=== PATIENT | male | born 1960 | race Caucasian/White ===

== ENCOUNTER 2024-08-11 09:52 | Outpatient (CLI) | payer BC, SELFPAY | END 2024-08-11 09:53 | disposition home or self-care (01) | LOC: WOUND 09:53 | PROVIDERS: PCP Internal Medicine; Visit Provider Nurse Practitioner Family | DX: T81.31XA Disruption of external operation (surgical) wound, not elsewhere classified, initial encounter (principal); L89.154 Pressure ulcer of sacral region, stage 4; G35 Multiple sclerosis | CPT/HCPCS: 11042; 97597; 97605; G0463 ==

== ENCOUNTER 2024-08-17 10:42 | Outpatient (CLI) | payer BC, SELFPAY | END 2024-08-17 10:43 | disposition home or self-care (01) | LOC: WOUND 10:42 | PROVIDERS: PCP Internal Medicine; Visit Provider Nurse Practitioner Family | DX: L89.154 Pressure ulcer of sacral region, stage 4 (principal); T81.31XA Disruption of external operation (surgical) wound, not elsewhere classified, initial encounter; G35 Multiple sclerosis | CPT/HCPCS: 11043; 97597; 97605 ==

== ENCOUNTER 2024-08-24 10:49 | Outpatient (CLI) | payer BC, SELFPAY | END 2024-08-24 10:50 | disposition home or self-care (01) | LOC: WOUND 10:49 | PROVIDERS: PCP Internal Medicine; Visit Provider Nurse Practitioner Family | DX: L89.154 Pressure ulcer of sacral region, stage 4 (principal); T81.31XA Disruption of external operation (surgical) wound, not elsewhere classified, initial encounter; G35 Multiple sclerosis | CPT/HCPCS: 11042; 97597; 97605 ==

== ENCOUNTER 2024-08-31 10:46 | Outpatient (CLI) | payer BC, SELFPAY | END 2024-08-31 10:47 | disposition home or self-care (01) | LOC: WOUND 10:46 | PROVIDERS: PCP Internal Medicine; Visit Provider Nurse Practitioner Family | DX: L89.154 Pressure ulcer of sacral region, stage 4 (principal); G35 Multiple sclerosis | CPT/HCPCS: 11042 ==

== ENCOUNTER 2024-09-07 10:43 | Outpatient (CLI) | payer BC, SELFPAY | END 2024-09-07 10:44 | disposition home or self-care (01) | PROVIDERS: PCP Internal Medicine; Visit Provider Nurse Practitioner Family | DX: L89.154 Pressure ulcer of sacral region, stage 4 (principal); T81.31XA Disruption of external operation (surgical) wound, not elsewhere classified, initial encounter; G35 Multiple sclerosis | CPT/HCPCS: 11042; 97605 ==

== ENCOUNTER 2024-09-14 10:42 | Outpatient (CLI) | payer BC, SELFPAY | END 2024-09-14 10:43 | disposition home or self-care (01) | LOC: WOUND 10:42 | PROVIDERS: PCP Internal Medicine; Visit Provider Nurse Practitioner Family | DX: L89.154 Pressure ulcer of sacral region, stage 4 (principal); T81.31XA Disruption of external operation (surgical) wound, not elsewhere classified, initial encounter; G35 Multiple sclerosis | CPT/HCPCS: 11042; 97605 ==

== ENCOUNTER 2024-09-21 10:49 | Outpatient (CLI) | payer BC, SELFPAY | END 2024-09-21 10:50 | disposition home or self-care (01) | LOC: WOUND 10:49 | PROVIDERS: PCP Internal Medicine; Visit Provider Nurse Practitioner Family | DX: L89.154 Pressure ulcer of sacral region, stage 4 (principal); G35 Multiple sclerosis | CPT/HCPCS: 11042; 97605 ==

== ENCOUNTER 2024-09-28 10:45 | Outpatient (CLI) | payer BC, SELFPAY | END 2024-09-28 10:46 | disposition home or self-care (01) | LOC: WOUND 10:45 | PROVIDERS: PCP Internal Medicine; Visit Provider Nurse Practitioner Family | DX: L89.154 Pressure ulcer of sacral region, stage 4 (principal); G35 Multiple sclerosis | CPT/HCPCS: 11042; 97605 ==

== ENCOUNTER 2024-10-05 10:47 | Outpatient (CLI) | payer BC, SELFPAY | END 2024-10-05 10:48 | disposition home or self-care (01) | LOC: WOUND 10:47 | PROVIDERS: PCP Internal Medicine; Visit Provider Nurse Practitioner Family | DX: L89.154 Pressure ulcer of sacral region, stage 4 (principal); G35 Multiple sclerosis | CPT/HCPCS: 15271; Q4151 ==

== ENCOUNTER 2024-10-12 10:37 | Outpatient (CLI) | payer BC, SELFPAY | END 2024-10-12 10:38 | disposition home or self-care (01) | LOC: WOUND 10:37 | PROVIDERS: PCP Internal Medicine; Visit Provider Family Medicine | DX: L89.154 Pressure ulcer of sacral region, stage 4 (principal); G35 Multiple sclerosis | CPT/HCPCS: 11042; 97605 ==

== ENCOUNTER 2024-10-19 10:46 | Outpatient (CLI) | payer BC, SELFPAY | END 2024-10-19 10:47 | disposition home or self-care (01) | LOC: WOUND 10:46 | PROVIDERS: PCP Internal Medicine; Visit Provider Physician Assistant | DX: L89.154 Pressure ulcer of sacral region, stage 4 (principal); G35 Multiple sclerosis | CPT/HCPCS: 15271; 15275; 97605; Q4151 ==

== ENCOUNTER 2024-10-26 10:53 | Outpatient (CLI) | payer BC, SELFPAY | END 2024-10-26 10:54 | disposition home or self-care (01) | LOC: WOUND 10:53 | PROVIDERS: PCP Internal Medicine; Visit Provider Nurse Practitioner Family | DX: L89.154 Pressure ulcer of sacral region, stage 4 (principal); G35 Multiple sclerosis | CPT/HCPCS: 11042; 97605 ==

== ENCOUNTER 2024-11-02 10:39 | Outpatient (CLI) | payer BC, SELFPAY | END 2024-11-02 10:40 | disposition home or self-care (01) | LOC: WOUND 10:39 | PROVIDERS: PCP Internal Medicine; Visit Provider Nurse Practitioner Family | DX: L89.154 Pressure ulcer of sacral region, stage 4 (principal); G35 Multiple sclerosis | CPT/HCPCS: 15271; 97605; Q4151 ==

== ENCOUNTER 2024-11-09 10:48 | Outpatient (CLI) | payer BC, SELFPAY | END 2024-11-09 10:49 | disposition home or self-care (01) | LOC: WOUND 10:48 | PROVIDERS: PCP Internal Medicine; Visit Provider Nurse Practitioner Family | DX: L89.154 Pressure ulcer of sacral region, stage 4 (principal); G35 Multiple sclerosis | CPT/HCPCS: 11042; 97605 ==

== ENCOUNTER 2024-11-16 10:41 | Outpatient (CLI) | payer BC, SELFPAY | END 2024-11-16 10:42 | disposition home or self-care (01) | LOC: WOUND 10:41 | PROVIDERS: PCP Internal Medicine; Visit Provider Nurse Practitioner Family | DX: L89.154 Pressure ulcer of sacral region, stage 4 (principal); G35 Multiple sclerosis | CPT/HCPCS: 11042; 97605 ==

== ENCOUNTER 2024-11-23 10:39 | Outpatient (CLI) | payer BC, SELFPAY | END 2024-11-23 10:40 | disposition home or self-care (01) | LOC: WOUND 10:39 | PROVIDERS: PCP Internal Medicine; Visit Provider Nurse Practitioner Family | DX: L89.154 Pressure ulcer of sacral region, stage 4 (principal); G35 Multiple sclerosis | CPT/HCPCS: 11042 ==

== ENCOUNTER 2024-11-30 10:47 | Outpatient (CLI) | payer BC, SELFPAY | END 2024-11-30 10:48 | disposition home or self-care (01) | LOC: WOUND 10:47 | PROVIDERS: PCP Internal Medicine; Visit Provider Nurse Practitioner Family | DX: L89.154 Pressure ulcer of sacral region, stage 4 (principal); G35 Multiple sclerosis | CPT/HCPCS: 11042 ==

== ENCOUNTER 2024-12-07 10:38 | Outpatient (CLI) | payer BC, SELFPAY | END 2024-12-07 10:39 | disposition home or self-care (01) | LOC: WOUND 10:38 | PROVIDERS: PCP Internal Medicine; Visit Provider Nurse Practitioner Family | DX: L89.154 Pressure ulcer of sacral region, stage 4 (principal); G35 Multiple sclerosis | CPT/HCPCS: 11042 ==

== ENCOUNTER 2024-12-14 10:54 | Outpatient (CLI) | payer MEDICAID, SELFPAY | END 2024-12-14 10:55 | disposition home or self-care (01) | PROVIDERS: PCP Internal Medicine; Visit Provider Nurse Practitioner Family | DX: L89.154 Pressure ulcer of sacral region, stage 4 (principal); G35 Multiple sclerosis | CPT/HCPCS: 11042 ==

== ENCOUNTER 2024-12-21 10:30 | Outpatient (CLI) | payer BC, SELFPAY ==
--- NOTE | 2024-12-21 11:30 | CRLHL7_ITS ---
For Patients: As a result of the Cures Act, medical imaging exams and procedure reports are released immediately into your electronic medical record. You may view this report before your referring provider. If you have questions, please contact your health care provider. Indication: STAGE 4 PRESSURE ULCER. ASSESS FOR OSTEOMYELITIS Technique: AP pelvis Comparison: None Findings: Joint space narrowing and spurring at the right hip with subchondral degenerative cystic change and loss of the joint space. No periostitis or cortical destruction. No fracture. Vascular calcifications. No soft tissue gas. Impression: No evidence of osteomyelitis. Dictated by Elliot Malcolm MD @ 12/21/2024 12:25:58 PM (Electronically Signed)
== END 2024-12-21 10:31 | disposition home or self-care (01) ==
PROVIDERS: PCP Internal Medicine; Visit Provider Nurse Practitioner Family
DX: L89.154 Pressure ulcer of sacral region, stage 4 (principal); G35 Multiple sclerosis
CPT/HCPCS: 11042; 72170

== ENCOUNTER 2024-12-28 10:50 | Outpatient (CLI) | payer BC, SELFPAY | END 2024-12-28 10:51 | disposition home or self-care (01) | LOC: WOUND 10:50 | PROVIDERS: PCP Internal Medicine; Visit Provider Nurse Practitioner Family | DX: L89.154 Pressure ulcer of sacral region, stage 4 (principal); G35 Multiple sclerosis | CPT/HCPCS: 11042 ==

== ENCOUNTER 2025-01-04 10:48 | Outpatient (CLI) | payer BC, SELFPAY | END 2025-01-04 10:49 | disposition home or self-care (01) | LOC: WOUND 10:48 | PROVIDERS: PCP Internal Medicine; Visit Provider Nurse Practitioner Family | DX: L89.154 Pressure ulcer of sacral region, stage 4 (principal); G35 Multiple sclerosis | CPT/HCPCS: 11042 ==

== ENCOUNTER 2025-01-11 10:48 | Outpatient (CLI) | payer BC, SELFPAY | END 2025-01-11 10:49 | disposition home or self-care (01) | LOC: WOUND 10:48 | PROVIDERS: PCP Internal Medicine; Visit Provider Nurse Practitioner Family | DX: L89.154 Pressure ulcer of sacral region, stage 4 (principal); G35 Multiple sclerosis | CPT/HCPCS: 11042 ==

== ENCOUNTER 2025-01-18 10:35 | Outpatient (CLI) | payer BC, SELFPAY | END 2025-01-18 10:36 | disposition home or self-care (01) | LOC: WOUND 10:36 | PROVIDERS: PCP Internal Medicine; Visit Provider Nurse Practitioner Family | DX: L89.154 Pressure ulcer of sacral region, stage 4 (principal); G35.D Multiple sclerosis, unspecified | CPT/HCPCS: 11042 ==

== ENCOUNTER 2025-01-25 10:40 | Outpatient (CLI) | payer BC, SELFPAY | END 2025-01-25 10:41 | disposition home or self-care (01) | LOC: WOUND 10:40 | PROVIDERS: PCP Internal Medicine; Visit Provider Nurse Practitioner Family | DX: L89.154 Pressure ulcer of sacral region, stage 4 (principal); G35.D Multiple sclerosis, unspecified | CPT/HCPCS: 11042 ==

== ENCOUNTER 2025-02-01 10:56 | Outpatient (CLI) | payer BC, SELFPAY | END 2025-02-01 10:57 | disposition home or self-care (01) | LOC: WOUND 10:56 | PROVIDERS: PCP Internal Medicine; Visit Provider Nurse Practitioner Family | DX: L89.154 Pressure ulcer of sacral region, stage 4 (principal); G35.D Multiple sclerosis, unspecified | CPT/HCPCS: 11042 ==

== ENCOUNTER 2025-02-08 10:56 | Outpatient (CLI) | payer BC, SELFPAY | END 2025-02-08 10:57 | disposition home or self-care (01) | LOC: WOUND 10:56 | PROVIDERS: PCP Internal Medicine; Visit Provider Nurse Practitioner Family | DX: L89.154 Pressure ulcer of sacral region, stage 4 (principal); G35.D Multiple sclerosis, unspecified | CPT/HCPCS: 11042 ==

== ENCOUNTER 2025-02-15 10:22 | Outpatient (CLI) | payer BC, SELFPAY | END 2025-02-15 10:23 | disposition home or self-care (01) | LOC: WOUND 10:22 | PROVIDERS: PCP Internal Medicine; Visit Provider Nurse Practitioner Family | DX: L89.154 Pressure ulcer of sacral region, stage 4 (principal); G35.D Multiple sclerosis, unspecified | CPT/HCPCS: 11042 ==

== ENCOUNTER 2025-02-22 10:36 | Outpatient (CLI) | payer BC, SELFPAY | END 2025-02-22 10:37 | disposition home or self-care (01) | LOC: WOUND 10:36 | PROVIDERS: PCP Internal Medicine; Visit Provider Nurse Practitioner Family | DX: L89.154 Pressure ulcer of sacral region, stage 4 (principal); G35.D Multiple sclerosis, unspecified | CPT/HCPCS: 11042 ==

== ENCOUNTER 2025-03-01 10:28 | Outpatient (CLI) | payer BC, SELFPAY | END 2025-03-01 10:29 | disposition home or self-care (01) | LOC: WOUND 10:28 | PROVIDERS: PCP Internal Medicine; Visit Provider Nurse Practitioner Family | DX: L89.154 Pressure ulcer of sacral region, stage 4 (principal); G35.D Multiple sclerosis, unspecified | CPT/HCPCS: 11042 ==

== ENCOUNTER 2025-03-08 10:46 | Outpatient (CLI) | payer BC, SELFPAY | END 2025-03-08 10:47 | disposition home or self-care (01) | LOC: WOUND 10:46 | PROVIDERS: PCP Internal Medicine; Visit Provider Nurse Practitioner Family | DX: L89.154 Pressure ulcer of sacral region, stage 4 (principal); G35.D Multiple sclerosis, unspecified; M10.041 Idiopathic gout, right hand | CPT/HCPCS: 11042 ==

== ENCOUNTER 2025-03-15 10:33 | Outpatient (CLI) | payer BC, SELFPAY | END 2025-03-15 10:34 | disposition home or self-care (01) | LOC: WOUND 10:33 | PROVIDERS: PCP Internal Medicine; Visit Provider Nurse Practitioner Family | DX: L89.154 Pressure ulcer of sacral region, stage 4 (principal); M10.041 Idiopathic gout, right hand; G35.D Multiple sclerosis, unspecified | CPT/HCPCS: G0463 ==

== ENCOUNTER 2025-03-22 10:21 | Outpatient (CLI) | payer BC, SELFPAY | END 2025-03-22 10:22 | disposition home or self-care (01) | LOC: WOUND 10:21 | PROVIDERS: PCP Internal Medicine; Visit Provider Nurse Practitioner Family | DX: L89.154 Pressure ulcer of sacral region, stage 4 (principal); G35.D Multiple sclerosis, unspecified; M10.041 Idiopathic gout, right hand | CPT/HCPCS: G0463 ==